=== PATIENT | male | born 1940 | race Asian ===

== ENCOUNTER → 2019-01-17 06:35 | Outpatient (CLI) | payer MEDICARE, OTHER, SELFPAY ==
--- NOTE | 2019-01-17 | DI.ECHO.S_ITS ---
[facility]+ [facility] +---------+ : : [address] : : : : [id number] : : : : Phone: [phone]+ Echocardiogram Report + + :Name: MATTHEW RAMÍREZ Study Date: 01/17/2019 Height: 67 in : :[facility] Weight: 159 lb : : Gender: Male BSA: 1.8 m2 : :: 1940 Age: 79 yrs BP: 110/50 mmHg: :Reason For Study: Chest pain : : Performed By: Norma Marrero : :Referring: DAVID KEVIN L : + + Interpretation Summary Normal left ventricle size with ejection fraction 60-65%. Grade I diastolic dysfunction. Borderline left atrial enlargement. Mild aortic valve sclerosis. The right ventricular systolic pressure is estimated to be at least 43 mmHg based on an estimated right atrial pressure of 3 mm Hg. Mildly enlarged ascending aorta. Procedure: A two-dimensional transthoracic echocardiogram with color flow and Doppler was performed. The study quality was technically good. Most of the acoustic windows were suboptimal, but the best imaging was obtained from the subcostal window. The patient was in normal sinus rhythm during the exam. Left Ventricle: The left ventricle is normal in size. There is normal left ventricular wall thickness. The ejection fraction is estimated to be 60-65%. There are no focal wall motion abnormalities. Diastolic parameters suggest a relaxation abnormality of the left ventricle, consistent with probable normal filling pressures. Right Ventricle: The right ventricle grossly appears normal in size with probable normal systolic function. Atria: Borderline left atrial enlargement. Right atrial size is normal. The interatrial septum is intact with no evidence for an atrial septal defect. Mitral Valve: The mitral valve is normal in structure and function. There is no mitral regurgitation noted. Aortic Valve: The aortic valve is trileaflet. The aortic valve opens well. There is mild aortic valve sclerosis. No aortic regurgitation is present. Tricuspid Valve: The tricuspid valve is normal in structure and function. There is trace tricuspid regurgitation. The right ventricular systolic pressure is estimated to be at least 43 mmHg based on an estimated right atrial pressure of 3 mm Hg. Pulmonic Valve: The pulmonic valve is normal in structure and function. There is no pulmonic valvular regurgitation. Great Vessels: The aortic root is normal size. The ascending aorta is mildly enlarged. The aortic arch is normal in size. The IVC is of normal diameter and collapses greater than 50% with a sniff. This suggests a low right atrial pressure of 3 mm Hg. Pericardium/ Pleura There is no pericardial effusion. There is no pleural effusion. MMode/2D Measurements & Calculations LVIDd: 4.9 cm Ao root diam: 3.2 cm LVIDs: 2.8 cm Aortic Jxn: 2.6 cm FS: 43.1 % asc Aorta Diam: 3.7 cm EPSS: 0.83 cm Ao Arch Diam (Prox Trans): 2.7 cm IVSd: 1.1 cm LVPWd: 0.81 cm LV santiago. diameter/BSA (cm/m^2): 2.7 LV sys. diameter/BSA (cm/m^2): 1.5 LA dimension: 4.4 cm RA long axis: 5.1 cm LA A2 area: 19.4 cm2 RA area: 17.8 cm2 LA A4 area: 19.3 cm2 RA vol: 52.5 ml LA length (vol): 5.0 cm RA : 28.6 ml/m2 LA vol: 64.0 ml IVC diam: 1.3 cm LA vol index: 34.9 ml/m2 RVDd major: 5.8 cm RVD1 (basal): 4.3 cm RVD2 (mid): 3.7 cm Doppler Measurements & Calculations Ao V2 max: 182.2 cm/sec MV E max pepe: 83.6 cm/sec Ao V2 mean: 108.7 cm/sec MV A max pepe: 88.7 cm/sec Ao max P.3 mmHg MV E/A: 0.94 Ao mean P.7 mmHg Med Peak E' Pepe: 6.0 cm/sec Ao V2 VTI: 34.4 cm E/E' med: 13.9 Lat Peak E' Pepe: 5.2 cm/sec E/E' lat: 16.2 E/e' average: 15.1 MV dec time: 0.30 sec MV P1/2t: 87.6 msec TR max pepe: 317.8 cm/sec MV P1/2t max pepe: 83.1 cm/sec TR max P.4 mmHg MVA(P1/2t): 2.5 cm2 PA V2 max: 167.2 cm/sec PA V2 mean: 101.8 cm/sec PA mean P.0 mmHg PA Accel Time: 0.15 sec Electronically signed by: Maisha Moreno on Reading Physician:01/17/2019 02:17 PM
--- NOTE | 2019-01-17 | DI.RAD.S_ITS ---
PROCEDURE: XR CHEST 2V INDICATIONS: Chest pain, unspecified TECHNIQUE: 2 views of the chest were acquired. COMPARISON: None. FINDINGS: Surgical changes and devices: None. Lungs and pleura: Lungs are clear. No pleural effusions or pneumothorax. Mediastinum: Mediastinal contours are normal. Heart size is normal. Bones and chest wall: No suspicious bony abnormalities. Soft tissues appear unremarkable. IMPRESSION: Source of chest pain not found. Dictated by: Yaniv Fernandes M.D. on 01/17/2019 at 8:41 Approved by: Yaniv Fernandes M.D. on 01/17/2019 at 8:42
== END ==
PROVIDERS: Family Provider Family Medicine; PCP Family Medicine; Visit Provider Family Medicine
DX: R07.89 Other chest pain (principal); I10 Essential (primary) hypertension
CPT/HCPCS: 71046; 93306

== ENCOUNTER → 2019-02-10 10:22 | Outpatient (CLI) | payer MEDICARE, OTHER, SELFPAY ==
--- NOTE | 2019-02-10 | DI.RAD.S_ITS ---
PROCEDURE: XR LUMBAR SPINE 2-3V INDICATIONS: BACK PAIN TECHNIQUE: 3 views of the lumbar spine were acquired. COMPARISON: [facility], CT, ABDOMEN/PELVIS WITH CONTRAST, 08/04/2012, 9:59. [facility], CR, L-SPINE 2-3 VIEWS, 05/20/2013, 9:11. FINDINGS: Bones: This patient has transitional lumbar anatomy. For the purposes of this examination, the level with the last pair of ribs is considered to be T12. By this numbering scheme, the L5 level is transitional and partially sacralized. No displaced fractures are seen. There is minimal retrolisthesis at L3-L4. The disc heights are relatively well-preserved. Endplate irregularity and sclerosis are seen, which are most prominent at L3-L4 and L4-L5. Lower lumbar spine facet arthropathy is seen. Mild dextroconvex scoliotic curvature is seen. Soft tissues: Overlying bowel gas pattern is normal. No suspicious soft tissue calcifications. Right retroperitoneal clips are seen. 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 The degenerative changes have progressed compared to 2012. Transitional lumbar anatomy, with a partially sacralized L5 level. Right retroperitoneal clips are seen. Dictated by: Erwin Guzman M.D. on 02/10/2019 at 11:07 Approved by: Erwin Guzman M.D. on 02/10/2019 at 11:10
== END ==
PROVIDERS: Family Provider Family Medicine; PCP Family Medicine; Visit Provider Family Medicine
DX: M54.5 Low back pain (principal); M47.816 Spondylosis without myelopathy or radiculopathy, lumbar region; M43.27 Fusion of spine, lumbosacral region
CPT/HCPCS: 72100

== ENCOUNTER → 2020-08-06 10:50 | Outpatient (CLI) | payer MEDICARE, OTHER, SELFPAY ==
--- NOTE | 2020-08-06 | DI.RAD.S_ITS ---
PROCEDURE: XR SHOULDER RT MIN 2V INDICATIONS: PAIN TECHNIQUE: 3 views of the shoulder were acquired. COMPARISON: None. FINDINGS: Bones: No fractures or dislocations. No suspicious bony lesions. Visualized ribs appear intact. [id number] right shoulder joint degeneration. Scattered degenerative subchondral sclerosis and spurring. Soft tissues: No suspicious soft tissue calcifications. IMPRESSION: Right shoulder joint degeneration. If the patient's pain or other symptoms persist, consider further evaluation with MRI Dictated by: Delfino Huynh M.D. on 08/06/2020 at 12:33 Approved by: Delfino Huynh M.D. on 08/06/2020 at 12:34
--- NOTE | 2020-08-06 | DI.RAD.S_ITS ---
PROCEDURE: XR CHEST 2V INDICATIONS: Chest pain, unspecified TECHNIQUE: 2 views of the chest were acquired. COMPARISON: [facility], CR, XR CHEST 2V, 01/17/2019, 6:38. FINDINGS: Surgical changes and devices: None. Scattered subsegmental atelectasis and/or scarring. No focal consolidation. No pleural effusions or pneumothorax. Mediastinum: Mediastinal contours are normal. Heart size is normal. Bones and chest wall: No suspicious bony abnormalities. Soft tissues appear unremarkable. IMPRESSION: No acute disease Dictated by: Delfino Huynh M.D. on 08/06/2020 at 12:30 Approved by: Delfino Huynh M.D. on 08/06/2020 at 12:33
--- NOTE | 2020-08-06 | DI.RAD.S_ITS ---
PROCEDURE: XR SHOULDER LT MIN 2V INDICATIONS: PAIN TECHNIQUE: 3 views of the shoulder were acquired. COMPARISON: None. FINDINGS: Bones: No fractures or dislocations. No suspicious bony lesions. Visualized ribs appear intact. Mild to moderate shoulder joint degeneration. Scattered degenerative subchondral sclerosis and spurring. Soft tissues: No suspicious soft tissue calcifications. IMPRESSION: [id number]-up-[id number] left shoulder joint degeneration Dictated by: Delfino Huynh M.D. on 08/06/2020 at 12:09 Approved by: Delfino Huynh M.D. on 08/06/2020 at 12:10
== END ==
PROVIDERS: Family Provider Family Medicine; PCP Family Medicine; Referring Provider Family Medicine; Visit Provider Family Medicine
DX: R07.9 Chest pain, unspecified (principal); M25.519 Pain in unspecified shoulder; M19.011 Primary osteoarthritis, right shoulder; M19.012 Primary osteoarthritis, left shoulder
CPT/HCPCS: 71046; 73030

== ENCOUNTER → 2020-12-18 08:49 | Outpatient (CLI) | payer MEDICARE, OTHER, SELFPAY ==
--- NOTE | 2020-12-18 | DI.US.S_ITS ---
PROCEDURE: US RENAL COMPLETE INDICATIONS: HISTORY RIGHT RCC, NEPHRECTOMY TECHNIQUE: Real-time scanning was performed of the kidneys and bladder, with image documentation. COMPARISON: [facility], , RENAL COMPLETE, 02/09/2017, 9:47. FINDINGS: Kidneys: Right kidney is surgically absent. Left kidney measures 12.7 cm in length and 1.7 cm in cortical thickness. There is no hydronephrosis or shadowing nephrolithiasis seen. No gross solid appearing renal lesion. 1.2 x 1.1 x 0.8 cm simple cyst is seen in lower pole of left kidney. Bladder: Pre-void bladder volume is 101 mL. Post-void residual is 0 mL. Pre-void images demonstrate no intraluminal masses or stones. On pre-void images, no ureteral jets are noted with color Doppler interrogation. (Of note, ureteral jets may not be detectable in up to 25% of cases due to insufficient differences in specific gravity between ureteral and bladder urine). Miscellaneous: No free pelvic fluid. IMPRESSION: 1. Simple cyst in left kidney. No solid appearing renal lesion. No hydronephrosis or nephrolithiasis. 2. Right kidney is surgically absent. No gross abnormality is seen in right renal fossa. 3. Normal appearing urinary bladder Dictated by: Carlos Manuel Landry M.D. on 12/18/2020 at 12:36 Approved by: Carlos Manuel Landry M.D. on 12/18/2020 at 12:37
== END ==
PROVIDERS: Family Provider Family Medicine; PCP Family Medicine; Referring Provider Urology; Visit Provider Urology
DX: Z08 Encounter for follow-up examination after completed treatment for malignant neoplasm (principal); Z85.528 Personal history of other malignant neoplasm of kidney; N28.1 Cyst of kidney, acquired; Z90.5 Acquired absence of kidney
CPT/HCPCS: 76770

== ENCOUNTER → 2022-02-05 15:20 | Outpatient (CLI) | payer MEDICARE, OTHER, SELFPAY ==
[2022-02-05 17:01] LABS: Blood Urea Nitrogen 34 mg/dL (9-20); Calcium 9.2 mg/dL (8.4-10.2); Carbon Dioxide 24 mmol/L (22-32); Chloride 105 mmol/L (98-107); Estimated Glomerular Filt Rate 55 mL/min (>60); Glucose 98 mg/dL (80-110); HEMOLYSIS 15 (0-50); Potassium 4.1 mmol/L (3.4-5.1); Sodium 139 mmol/L (137-145)
== END ==
PROVIDERS: Family Provider Family Medicine; PCP Family Medicine; Referring Provider Urology; Visit Provider Urology
DX: Z85.528 Personal history of other malignant neoplasm of kidney (principal); K86.89 Other specified diseases of pancreas
CPT/HCPCS: 36415; 80048

== ENCOUNTER → 2022-02-12 10:50 | Outpatient (CLI) | payer MEDICARE, OTHER, SELFPAY ==
--- NOTE | 2022-02-12 | DI.CT.S_ITS ---
PROCEDURE: CT ABDOMEN PANCREATIC PROTOCOL INDICATIONS: Mass of pancreas TECHNIQUE: After the administration of intravenous contrast, 3 mm thick pancreatic-phase images acquired from the diaphragm to the iliac crests. 3 mm thick coronal and sagittal reformats were performed. For radiation dose reduction, the following was used: automated exposure control, adjustment of mA and/or kV according to patient size. COMPARISON: [facility], CT, ABDOMEN/PELVIS WITH CONTRAST, 08/04/2012, 9:59. FINDINGS: Image quality: Excellent. Lung bases: There is a rounded subpleural nodule in the posterior right lower lobe measuring 8 mm not present on the prior study from 2012. No other lung nodules. There is mild circumferential thickening of the distal esophagus. Trace hiatal hernia. Normal size heart. Pancreas: No normal pancreas is identified. There are several (eight) hyperenhancing, centrally hypointense masses throughout the expected location of the pancreas and near the splenic hilum. One of the largest is in the expected location of the uncinate process and measures about 4.5 by 3.6 by 3.1 cm. The mass near the splenic hilum measures about 3.6 cm in greatest diameter. The others are of similar size. The pancreatic duct is not seen. The common bile duct is normal caliber where it can be visualized. Other solid organs: The liver is normal without arterially enhancing masses. The gallbladder is decompressed. There is an arterially enhancing nodule which appears intraluminal measuring 8 mm within the gallbladder neck. No adrenal nodules. Normal spleen. There has been a right nephrectomy. There is a partially exophytic enhancing corticomedullary mass arising from the upper pole of the left kidney measuring 2.2 x 2.7 cm. Simple appearing corticomedullary cysts are seen throughout the rest of the left kidney. No nephrolithiasis or hydronephrosis. Peritoneum and bowel: The visible bowel loops and stomach are normal caliber without obstruction. No free fluid or free air in the upper abdomen. Nodes and vessels: No definite epigastric adenopathy, though some of these solid masses may be enlarged lymph nodes, particularly adjacent to the hepatic artery and in the splenic hilum. No visible mesenteric adenopathy. The aorta is normal caliber. The IVC is patent and also normal caliber. Bones: No suspicious bony lesions. No vertebral body compression fractures. Miscellaneous: No ventral hernias. IMPRESSION: 1. 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 2. 2.7 cm enhancing left upper pole renal mass suspicious for new primary renal cell carcinoma. 3. Prior right nephrectomy. 4. 8 mm lung nodule in the right lower lobe suspicious for metastatic disease. Dictated by: Suki Bloom M.D. on 02/12/2022 at 14:00 Approved by: Suki Bloom M.D. on 02/12/2022 at 14:16
== END ==
PROVIDERS: Family Provider Family Medicine; PCP Family Medicine; Referring Provider Urology; Visit Provider Urology
DX: K86.89 Other specified diseases of pancreas (principal); N28.89 Other specified disorders of kidney and ureter; R91.8 Other nonspecific abnormal finding of lung field; Z90.5 Acquired absence of kidney
CPT/HCPCS: 74160; Q9967

== ENCOUNTER → 2022-04-07 11:07 | Outpatient (CLI) | payer MEDICARE, OTHER, SELFPAY ==
--- NOTE | 2022-04-07 11:09 | DI.CT.S_ITS ---
PROCEDURE: CT CHEST WO CON INDICATIONS: Malignant neoplasm of right kidney, except renal p TECHNIQUE: Noncontrast 5 mm thick sections acquired from the pulmonary apices to the posterior costophrenic angles. 1 mm lung window, 5 mm thick coronal and sagittal and 7 mm axial MIP reformats were then acquired. For radiation dose reduction, the following was used: automated exposure control, adjustment of mA and/or kV according to patient size. COMPARISON: [facility], US, US RENAL COMPLETE, 01/08/2022, 12:57. [facility], CT, ABDOMEN/PELVIS WITH CONTRAST, 08/04/2012, 9:59. CT, THORAX WITH CONTRAST, 04/30/2012, 12:18. CT, THORAX WITH CONTRAST, 12/01/2011, 15:14. [facility], CT, CT ABDOMEN PANCREATIC PROTOCOL, 02/12/2022, 11:05. FINDINGS: Image quality: Excellent. Lungs and pleura: Lung nodules are present. Nodule 1: 0.9 cm; right lower lobe; series 3, image 227. Nodule 2: 0.3 cm; right lower lobe; series 3, image 175. Nodule 3: 0.2 cm; lingula; series 3, image 194. There is a 0.3 x 1.0 cm focal thickening in the right minor fissure, which was present on 04/30/2012. No acute air space opacities. No pleural effusions or pneumothorax. Central and peripheral airways are patent and normal in caliber. Mediastinum: There is a large mass in the right paratracheal area measuring 5.3 x 5.6 x 5.5 cm, compatible with metastasis. The central part of the mass is radiolucent, likely secondary to tumor necrosis. There is compression of superior vena cava suspicious for obstruction. Heart size is increased. Trace pericardial effusion. Thoracic aorta and central pulmonary arteries are normal in size. Esophagus is normal in caliber. Small hiatal hernia. Bones and chest wall: No suspicious bony lesions. No vertebral body compression fractures. No axillary or supraclavicular adenopathy by size criteria. Thyroid gland is grossly normal. Abdomen: The left apical renal mass is partially visualized in upper. IMPRESSION: 1. A large right paratracheal mass with central lucency consistent with necrosis. 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 There may be superior vena cava obstruction. 2. A 0.9 cm nodule in the right lower lobe, suspicious for metastasis. 2 other tiny nodules are present, indeterminate. Recommend close imaging follow-up. Dictated by: Cindy Kraus M.D. on 04/07/2022 at 12:56 Approved by: Cindy Kraus M.D. on 04/07/2022 at 13:14
== END ==
PROVIDERS: Family Provider Family Medicine; PCP Family Medicine; Referring Provider Urology; Visit Provider Urology
DX: C64.1 Malignant neoplasm of right kidney, except renal pelvis (principal); K86.89 Other specified diseases of pancreas; D49.519 Neoplasm of unspecified behavior of unspecified kidney; R91.8 Other nonspecific abnormal finding of lung field; J39.8 Other specified diseases of upper respiratory tract; K44.9 Diaphragmatic hernia without obstruction or gangrene
CPT/HCPCS: 71250